=== PATIENT | female | born 2000 | race Caucasian/White ===

== ENCOUNTER 2025-04-11 20:05 | Emergency (ER) | payer BC ==
[2025-04-11] MEDS ORDERED: Dexamethasone 4 MG TAB ONE (20:24)
[2025-04-11] MEDS ORDERED: diphenhydrAMINE 25 MG CAP ONE (20:24)
== END 2025-04-11 21:12 | disposition home or self-care (01) ==
LOC: CSHERS 20:05
DX: T78.40XA Allergy, unspecified, initial encounter (principal)
CPT/HCPCS: 99283; J8540